=== PATIENT | male | born 1955 | race Caucasian/White ===

== ENCOUNTER → 2018-04-09 | Outpatient (CLI) | payer OTHER ==
[~2018-04-09] MED LIST: ACETAMINOPHEN-1 EAC1 PO; ALPHAGAN P10 ML INTRAOCULR; AZITHROMYCIN 2250 MG PO; BRIMONIDINE TAR1 BO1 OP; CEFTIN 250 MG250 MG PO; HYDROCODONE-AP1 EAC6 PO; IBUPROFEN 800800 M1 PO; PREDNISONE 20 M20 MG PO; PROAIR HFA8.5 GM INH; PROMETHAZINE D480 ML PO; XALATAN2.5 M1 OPHTHALMIC; ZPAK PO
== END ==
LOC: M.RAD 16:07
DX: J45.901 Unspecified asthma with (acute) exacerbation (principal); Z87.01 Personal history of pneumonia (recurrent)

== ENCOUNTER → 2018-06-13 | Outpatient (CLI) | payer OTHER | LOC: M.LAB 12:27 | PROVIDERS: Internal Medicine | DX: R10.31 Right lower quadrant pain (principal); N20.0 Calculus of kidney; Z90.89 Acquired absence of other organs ==

== ENCOUNTER → 2020-07-05 | Outpatient (CLI) | payer OTHER ==
[~2020-07-05] MED LIST changes: +CIPROFLOXACIN500 M1 PO
== END ==
LOC: M.LAB 11:46
PROVIDERS: ATTEND Orthopaedic Surgery
DX: Z01.812 Encounter for preprocedural laboratory examination (principal); Z20.822 Contact with and (suspected) exposure to COVID-19

== ENCOUNTER 2020-07-10 23:31 | Emergency (ER) | payer OTHER ==
[~2020-07-10] VITALS: Ht 182.9 cm; Wt 63.5 kg
[~2020-07-10 23:31] MED LIST changes: -CIPROFLOXACIN500 M1 PO
[2020-07-11 00:47] LABS: URINE BILIRUBIN NEGATIVE (Negative); URINE BLOOD NEGATIVE (Negative); URINE CLARITY CLEAR; URINE COLOR YELLOW; URINE GLUCOSE-RANDOM NEGATIVE (Negative); URINE KETONES NEGATIVE (Negative); URINE LEUKOCYTES-REFLEX NEGATIVE (Negative); URINE NITRITE-REFLEX NEGATIVE (Negative); URINE PROTEIN NEGATIVE (Negative); URINE UROBILINOGEN 0.2 E.U./dl (0.2-1.0)
[2020-07-11] MEDS ORDERED: CIPROFLOXACIN500 M1 PO (00:48)
[2020-07-11 01:28] VITALS: BP 128/80
== END 2020-07-11 01:30 | disposition home or self-care (01) ==
LOC: M.ERS 23:31
PROVIDERS: Personal Emergency Response Attendant
DX: N50.811 Right testicular pain (principal); Z79.899 Other long term (current) drug therapy; Z88.0 Allergy status to penicillin; Z88.2 Allergy status to sulfonamides